=== PATIENT | female | born 1990 | race Caucasian/White ===

== ENCOUNTER 2025-01-18 01:39 | Day surgery (SDC) | payer OTHER, SELFPAY ==
[2025-01-11 11:43] VITALS: BMI 35.1
--- NOTE | 2025-01-11 11:53 | PC.NURSE ---
Report to the Outpatient Waiting Room, entrance under the green pavilion located off [facility], at time __1130am on date ___01/18/25____. Planned Procedure Time: _130pm .? Time changes happen often and if your time is changed the preop area will call you the afternoon before. - You and your visitor will be asked to self-screen and do not enter if you have any COVID symptoms. Please call surgeon if you need to reschedule. - A mask is optional within the hospital at this time. Patients may have clear liquids (water, carbonated beverages, clear teas, apple juice) until 3 hours prior to surgery with a maximum of 20 ounces. - No food from midnight until time of surgery and no smoking, or chewing tobacco (or any form of nicotine). No chewing gum, candy or mints. (1030am) Take only the following medications with a SIP of water on the morning of surgery: __Fluoxetine, and Hydroxyzine if needed DO NOT STOP ANY OF YOUR OTHER PRESCRIPTION MEDICATIONS PRIOR TO SURGERY EXCEPT THE FOLLOWING Hold all vitamins and supplements for 3 days per anesthesiologist. Medications to discontinue per physician Semaglutide for 10 days prior per Anesthesia Date to take last dose___01/06/25 Please no make-up, nail swedish, hairspray, perfume, deodorant, or body powder the day of surgery.? No jewelry (including any body piercings) or valuables the day of surgery, leave them at home.? Please take a shower or bath the night before, or the morning of, surgery with an antibacterial soap.? Wear comfortable, loose fitting clothing.? - Jewelry must be removed prior to entering the operating room.? Rings and piercings that are not removed may be cut off. - The hospital will not accept responsibility for valuables.? - Please leave all valuables, including medications, at home the day of surgery. If you are going home after surgery, a licensed driver material handler must drive you home.? - NO public transportation without another adult if you receive anesthesia. - We recommend that an adult stay with you for 24 hours following discharge. - We also recommend that you do not drive, make important decision, drink alcoholic beverages, or take any drugs that were not prescribed by your health care provider for at least 24 hours after your discharge time. Follow any additional instructions given to you from your surgeon. Telephone instructions given to __Patient and asked if any additional questions and then verbalized understanding. Patient advised to call surgeon office or pre surgery nurse liaison [phone] if any additional questions.
--- NOTE | 2025-01-17 11:07 | PM.IMHP ---
H&P: HPI History of Present Illness Date/Time: 01/17/25 11:07 Chief Complaint: sterilization Narrative: Kanchan is a 34yo G0, LMP 01/2025 who presents for surgery for pelvic pain. She reports the pain has been present on and off for a few months. Reports it as a kind of achy/pressure like pain. She has a h/o PCOS. She reports she does have a period at least every 4-6 wks; the pain might improve when she's on her cycle; hasn't paid that close of attention. She is on Wegovy which has caused some constipation; but that has also improved. Hasn't paid attention if the pain has improved since her BMs improved. She is sexually active; no pain. She does not want children and would like to proceed with sterilization surgery. No fevers, chills. Review of Systems Constitutional: Constitutional: Denies chills, Denies fever(s) and Denies headache(s) Eyes: Eyes: Denies change in vision ENT: Denies dizziness and Denies headache(s) Cardiovascular: Cardiovascular: Denies chest pain and Denies dyspnea Respiratory: Respiratory: Denies cough and Denies dyspnea Gastrointestinal: Gastrointestinal: Denies abdominal pain and Denies change in stool character Genitourinary: Genitourinary: Denies abnormal menses, Denies pelvic pain, Denies vaginal discharge, Denies vaginal odor and Denies vaginal pruritus Neurologic: Denies dizziness and Denies headache(s) Psychiatric: Psychiatric: Denies anxiety and Denies depression [facility] Past Medical History Medical History (Updated 12/16/24 @ 09:36 by Che Junior MD) PCOS (polycystic ovarian syndrome) Anxiety Surgical History Surgical History History of facial surgery facial scar revision H/O wisdom tooth extraction Family History Family History Father Alcoholism Heart disease Hypertension Mother Depression Grandparent Diabetes mellitus Cerebrovascular accident Social History Social History (Updated 12/16/24 @ 09:13 by Darian Long MA) Smoking status: Never smoker Alcohol intake: current Drinks per week: 4 Alcohol use details: weekends Substance use: former Substance use type: marijuana Other substance usage details: used to use marijuana years ago Current Housing: Decline to Answer Concerned About Future Housing: Decline to Answer Difficulty Paying Gas/Electric Bills: Decline to Answer Difficulty Paying for Meds: Decline to Answer Currently Unemployed: Decline to Answer Education: Decline to Answer Difficulty w/ Childcare or Family Care: Decline to Answer Living arrangements: with family Additional living arrangements comments: mary Occupation/Education: occupation Additional occupation/education comments: [employer] Gender identity (if verbalized by the patient): Female Sexual Orientation (if Verbalized by the Patient): Straight or Heterosexual Spiritual care concerns: No Meds Home Medications and Allergies Home Medications ?Medication ?Instructions ?Recorded ?Confirmed ?Type fluoxetine 40 mg capsule 40 mg PO .AM 12/16/24 01/11/25 History hydroxyzine HCl 25 mg tablet 25 mg PO Q8H PRN anxiety 12/16/24 01/11/25 History semaglutide (weight loss) 0.25 0.25 mg subcut WEEKLY 12/16/24 01/11/25 History mg/0.5 mL subcutaneous pen injector (Wegovy) acetaminophen 325 mg tablet 650 mg PO ONCE PRN pain 01/11/25 01/11/25 History (Non-Aspirin) Allergies Allergy/AdvReac Type Severity Reaction Status Date / Time acetaminophen (From Vicodin) AdvReac Intermediate Other Verified 01/11/25 11:38 hydrocodone (From Vicodin) AdvReac Intermediate Other Verified 01/11/25 11:38 Exam Const: General: cooperative, healthy appearing, comfortable and no acute distress Orientation/consciousness: patient oriented x3 Resp: Effort & Inspection: normal respiratory effort Cardio: Rate: regular rate GI: Inspection: normal to inspection GI Palp: No abdominal tenderness and Yes Soft to palpation : Other: deferred to OR Skin: General skin exam: normal color Neuro: General: patient oriented x3 Extrem: General: normal to inspection Psych: Appearance: grossly normal Affect: normal affect Attitude: cooperative Assessment and Plan Assessment and plan (1) Encounter for sterilization: Code(s): Z30.2 - Encounter for sterilization Status: Acute Plan - Pt desires to proceed with laparoscopic bilateral salpingectomy. Risks and benefits discussed in detail including but not limited to pain, bleeding, injury to nearby structures including bowels, bladder, ovaries, blood vessels, nerves. Discussed that this is permanent sterilization and women under 30yo do have an increased risk of regret of the procedure. She understands of the other types of contraception including vasectomy but desires to proceed with complete removal of her fallopian tubes.
[2025-01-18] VITALS (8 sets, daily range): BP systolic 104–132; BP diastolic 74–91; PULSE 57–77; RESP 13–20; TEMP 36.2–36.6; O2SAT 96–100
--- NOTE | 2025-01-18 07:07 | WPDHPUPDATE1 ---
History and Physical Update Update Date/Time: 01/18/25 07:07 History and Physical has been reviewed, including an updated exam of the patient. There are NO changes in the patient's condition. Risks, benefits, and alternatives have been discussed and questions answered. Patient agrees to proceed with laparoscopic bilateral salpingectomy.
[2025-01-18] MEDS: KETOROLAC 15 MG/ML VIAL (*BKC) IV PUSH (12:20)
[2025-01-18] MEDS: LACTATED RINGERS 1,000 ML 30 ML IV CONT (12:30)
[2025-01-18] MEDS: ACETAMINOPHEN 500 MG TABLET 1000 MG PO (12:33)
[2025-01-18] MEDS: SCOPOLAMINE 1 MG PATCH 1 PATCH TRANSDERM (13:00)
--- NOTE | 2025-01-18 13:00 | WPDANESEPPF ---
Anes - Initial Pre Proc Eval Procedure: Operation Date: 01/18/25 13:30 Proposed Procedures p Bilateral Laparoscopic Salpingectomy - Che Junior MD Date/Time: 01/18/25 13:00 Surgeon: Che Junior MD Pre Op Diagnosis: desires sterilization Patient Data Age: 34 Gender: F Height: 1.6 m Weight: 96.5 kg Last Vital Signs Temp 36.6 C 01/18/25 11:45 Pulse 62 01/18/25 11:45 Resp 18 01/18/25 11:45 BP 121/84 01/18/25 11:45 Pulse Ox 100 01/18/25 11:45 O2 Del Method Room Air 01/18/25 11:45 Allergies Allergy/AdvReac Type Severity Reaction Status Date / Time hydrocodone (From Vicodin) AdvReac Intermediate Other Verified 01/18/25 12:01 Home Medications ?Medication ?Instructions ?Recorded ?Confirmed ?Type fluoxetine 40 mg capsule 40 mg PO .AM 12/16/24 01/18/25 History hydroxyzine HCl 25 mg tablet 25 mg PO Q8H PRN anxiety 12/16/24 01/18/25 History semaglutide (weight loss) 0.25 0.25 mg subcut WEEKLY 12/16/24 01/18/25 History mg/0.5 mL subcutaneous pen injector (Wegovy) acetaminophen 325 mg tablet 650 mg PO ONCE PRN pain 01/11/25 01/11/25 History (Non-Aspirin) acetaminophen 500 mg tablet 1,000 mg (2 x 500 mg) PO TID #60 01/18/25 Rx tabs docusate sodium 100 mg capsule 100 mg PO BID #90 caps 01/18/25 Rx (Colace) ibuprofen 800 mg tablet 800 mg PO TID #30 tabs 01/18/25 Rx oxycodone 5 mg tablet 5 mg PO Q4H PRN pain #14 tabs 01/18/25 Rx Patient hx anesthesia problems: none Family hx anesthesia problems: none Results Review: All pre-operative results and documents have been reviewed as part of the pre-operative evaluation. REPLACED BY [facility] Past Medical History Medical History PCOS (polycystic ovarian syndrome) Anxiety Surgical History Surgical History History of facial surgery facial scar revision H/O wisdom tooth extraction Family History Family History Father Alcoholism Heart disease Hypertension Mother Depression Grandparent Diabetes mellitus Cerebrovascular accident Social History Social History Smoking status: Never smoker Alcohol intake: current Drinks per week: 4 Alcohol use details: weekends Substance use: former Substance use type: marijuana Other substance usage details: used to use marijuana years ago Current Housing: Decline to Answer Concerned About Future Housing: Decline to Answer Difficulty Paying Gas/Electric Bills: Decline to Answer Difficulty Paying for Meds: Decline to Answer Currently Unemployed: Decline to Answer Education: Decline to Answer Difficulty w/ Childcare or Family Care: Decline to Answer Living arrangements: with family Additional living arrangements comments: mary Occupation/Education: occupation Additional occupation/education comments: [employer] Gender identity (if verbalized by the patient): Female Sexual Orientation (if Verbalized by the Patient): Straight or Heterosexual Spiritual care concerns: No Anes - Eval Final PreProcedure Day of Procedure 01/18/25 13:00 Patient weight: obese Heart: regular rate and rhythm Lungs: clear to auscultation Airway: Mallampati scale class II Neurological: alert and oriented Last oral intake: >/= 8 hours ASA classification: II Emergent: no Anesthetic plan: proceed Anesthesia type and monitoring: general ETT and standard monitoring Results Review: All pre-operative results and documents have been reviewed as part of the pre-operative evaluation. Informed Consent: The patient's anesthetic plan and its attendant risks and benefits were discussed with the patient/family/POA. Questions were solicited and answers provided to the satisfaction of the patient/family/POA.
[2025-01-18 13:28] LABS: BEDSIDEPREGUCG Negative (Negative)
[2025-01-18] MEDS: BUPIVACAINE/EPINEPHRINE 0.5% 50 ML VIAL 20 ML INFILTRATE (13:36)
--- NOTE | 2025-01-18 13:39 | S_PTH ---
PATIENT: Kanchan Casanova LOC: [facility] U#:[id number] AGE/SX: 34/F ROOM: RE01/18/[address]: Che Junior MD : 1990 BED: DIS: 01/18/2025 SPEC #: [id number] RECD: 01/18/25 14:21 STATUS: ARMIDA RE #: [id number] JOANNE: 01/18/25 13:[address]: Che Junior DEPT: [facility] Surgical RECD BY: Luna Granado ENTERED: 01/18/25 14:21 SP TYPE: Surgical OTHR DR: Leandro OrellanaMD Tissues: A - Fallopian Tube Single B - Fallopian Tube Single Procedures: Gross and Microscopic Level 2 Hematoxylin and Eosin Stain
--- NOTE | 2025-01-18 13:48 | P.OP_ITS ---
Procedure Note - Detailed Date of Procedure 01/18/25 Pre-op Diagnosis desires sterilization Post-op Diagnosis Same Procedure Performed Laparoscopic bilateral salpingectomy Surgeon Che Junior MD Veneer Lathe Operator Manda Anesthesia General and Local (_cc of 0.5% marcaine w/ epi) Findings Normal cervix. Uterus sounded to 8cm. Normal fallopian tubes and ovaries bilaterally. Good hemostasis at end of case. Description of Procedure Kanchan was taken to the operating room where she was placed under general endotracheal anesthesia without complications. She was then prepped and draped in the usual sterile fashion in the dorsal lithotomy position with her legs in low Freddy stirrups and her arms tucked at her side with a strap over her chest. A time-out was performed and no preoperative antibiotics were indicated. My attention was turned down below where a bivalve speculum was then placed within the vagina where the cervix was easily identified. The anterior lip of the cervix was grasped with a single-tooth tenaculum, the uterus was sounded, and a diagnostic uterine manipulator was placed without complications. My gloves were changed and my attention was turned to her abdomen. An umbilical incision was made, and a 5 mm trocar was placed under direct visualization without complications. Once intra-abdominal placement was confirmed the abdomen was insufflated with carbon dioxide gas. She was then placed in Trendelenburg and two additional 5 mm ports were placed in the left and right lower quadrants under direct visualization without complications. The above findings were noted. The left fallopian tube was then elevated and the mesosalpinx was serially clamped, coagulated, transected using the LigaSure device until the proximal end of the fallopian tube was reached. The proximal end of the fallopian tube was cross clamped, coagulated and transected. The tube was then removed from the abdomen. The same procedure was then performed on the right side without any complications. Good hemostasis was noted. All instruments were removed from the abdomen. The insufflation was released and the trocars were removed. The 3 laparoscopic incision sites were reapproximated using 4-0 Monocryl and covered with Dermabond. The incisions were then infiltrated using 0.5% Marcaine with epinephrine. The uterine manipulator was removed. Sponge, lap, instrument, and needle counts were correct at the end of the procedure. Patient was awoken from general anesthesia and taken to recovery with plans of same-day discharge home. Estimated Blood Loss 10 IV Fluids 800 Drains No Packing No Pathology Yes (left and right fallopian tubes) Complications No immediate complications Condition Stable Disposition Same day [facility] Billing Surgery - Charge Forward: Surgery Billing
[2025-01-18] MEDS: oxyCODONE HCL (*CRX) 5 MG TAB IR PO (14:59)
== END 2025-01-18 15:44 | disposition home or self-care (01) ==
PROVIDERS: PCP Family Medicine; Visit Provider Obstetrics & Gynecology
PROC: (CPT 49320; principal; 2025-01-18 13:30)
DX: Z30.2 Encounter for sterilization (principal); N83.8 Other noninflammatory disorders of ovary, fallopian tube and broad ligament; E66.9 Obesity, unspecified; Z68.37 Body mass index [BMI] 37.0-37.9, adult
CPT/HCPCS: 58661; 88302; A9270; J1100; J1885; J2003; J2250; J2405; J2704; J3010; J7120